=== PATIENT | male | born 1955 ===

== ENCOUNTER 2020-10-07 15:25 | Outpatient (CLI) | payer OTHER | END 2020-10-07 15:33 | disposition home or self-care (01) | LOC: RAD 15:25 | PROVIDERS: ATTEND Orthopaedic Surgery | DX: M25.571 Pain in right ankle and joints of right foot (principal); M25.572 Pain in left ankle and joints of left foot; M79.671 Pain in right foot; M79.672 Pain in left foot ==

== ENCOUNTER 2021-12-23 15:23 | Outpatient (CLI) | payer OTHER | END 2021-12-23 15:26 | disposition home or self-care (01) | LOC: RAD 15:23 | PROVIDERS: ATTEND Orthopaedic Surgery | DX: M54.50 Low back pain, unspecified (principal) ==

== ENCOUNTER 2023-04-12 14:22 | Outpatient (CLI) | payer OTHER | END 2023-04-12 14:28 | disposition home or self-care (01) | LOC: RAD 14:22 | PROVIDERS: ATTEND Orthopaedic Surgery | DX: M79.631 Pain in right forearm (principal); M25.521 Pain in right elbow ==

== ENCOUNTER 2023-04-13 11:59 | Outpatient (CLI) | payer OTHER | END 2023-04-13 12:03 | disposition home or self-care (01) | LOC: MRI 11:59 | PROVIDERS: ATTEND Orthopaedic Surgery | DX: M25.521 Pain in right elbow (principal) | CPT/HCPCS: 73221 ==

== ENCOUNTER 2023-04-15 09:42 | Outpatient (CLI) | payer OTHER ==
[2023-04-15 12:14] LABS: INR 1.21; PARTIAL THROMBOPLASTIN TIME 35.5 SECONDS (22.0-34.0); PROTHROMBIN TIME 12.5 SECONDS (9.0-11.5)
[2023-04-15 12:19] LABS: ALBUMIN 3.7 gm/dL (3.4-5.0); BILIRUBIN TOTAL 0.56 mg/dL (0.3-1.2); CALCIUM 9.2 mg/dL (8.5-10.1); CREATININE SERUM 1.12 mg/dL (0.70-1.30); GFR 65.2; GLOBULINA 3.1 G/DL (2.4-3.5); POTASSIUM 4.75 mEq/L (3.5-5.1); TOTAL PROTEIN 6.8 gm/dL (6.4-8.2)
[2023-04-15 12:20] LABS: HEMATOCRIT 38.7 % (39.0-48.0); HEMOGLOBIN 13.3 g/dL (13-16.00); MEAN CELL VOLUME 86.5 fL (80.0-100.00); MEAN CORPUSCULAR HEMOGLOBIN 29.7 pg (27.00-32.0); MEAN CORPUSCULAR HGB CONC 34.4 g/dl (32.0-36.0); PLATELET COUNT 180 K/uL (150-450); RED BLOOD COUNT 4.47 M/uL (4.00-6.00); RED CELL DISTRIBUTION WIDTH 13.6 % (11.5-14.5)
[2023-04-15 12:32] LABS: PH,URINE 5.5 (5.0-8.0); URINE APPEARANCE Clear; URINE BILIRRUBIN Negative (NEGATIVE); URINE BLOOD Negative; URINE COLOR Yellow; URINE GLUCOSE Negative (NEGATIVE); URINE LEUKOCYTE Negative; URINE NITRATE Negative; URINE PROTEIN Negative (NEGATIVE); URINE UROBILINOGEN 0.2 E.U./dl
[2023-04-15 12:36] LABS: URINE BACTERIA 8.8 uL (0.0-1933); URINE EPITHELIAL CELLS 1.5 uL (0.0-38.8); URINE RBC 2.1 uL (0.0-20.8); URINE WBC 2.3 uL (0.0-23.2)
[2023-04-15 13:14] LABS: COL EPI 125 SECONDS (82-175)
== END 2023-04-15 09:43 | disposition home or self-care (01) ==
LOC: LAB 09:42
PROVIDERS: ATTEND Orthopaedic Surgery
DX: D64.9 Anemia, unspecified (principal); E88.89 Other specified metabolic disorders; D68.8 Other specified coagulation defects; N39.0 Urinary tract infection, site not specified; Z22.322 Carrier or suspected carrier of Methicillin resistant Staphylococcus aureus

== ENCOUNTER 2023-04-15 10:31 | Outpatient (CLI) | payer OTHER | END 2023-04-15 10:32 | disposition home or self-care (01) | LOC: RAD 10:31 | PROVIDERS: ATTEND Orthopaedic Surgery | DX: Z76.89 Persons encountering health services in other specified circumstances (principal) ==